=== PATIENT | male | born 1995 | race Caucasian/White ===

== ENCOUNTER 2017-12-30 21:30 | Emergency (ER) | payer OTHER ==
[~2017-12-30] VITALS: Ht 167.6 cm; Wt 63.5 kg
[~2017-12-30 21:30] MED LIST: CODACEE120 PO; CRUTCH4 USE; ERYT.5TO OS; Keflex500 MG PO; MUPI2TO TOP; PARO20; PARO20 PO; RXCODACESY PO
== END 2017-12-30 23:55 | disposition home or self-care (01) ==
LOC: ER 21:30
DX: S02.32XA Fracture of orbital floor, left side, initial encounter for closed fracture (principal); F17.210 Nicotine dependence, cigarettes, uncomplicated; Y04.2XXA Assault by strike against or bumped into by another person, initial encounter
CPT/HCPCS: 70486; 99284

== ENCOUNTER 2020-01-26 08:33 | Emergency (ER) | payer SELFPAY ==
[~2020-01-26] VITALS: Ht 170.2 cm; Wt 64.9 kg
[2020-01-26] MEDS ORDERED: Norco 5-325 Ta1 EACH PO (09:02)
[2020-01-26] MEDS ORDERED: CYCL10 PO (09:02)
[2020-01-26] MEDS ORDERED: IBUP600 PO (09:02)
== END 2020-01-26 09:19 | disposition home or self-care (01) ==
LOC: ER 08:33
DX: M54.5 Low back pain (principal); F17.210 Nicotine dependence, cigarettes, uncomplicated
CPT/HCPCS: 96372; 99283-25; J1885

== ENCOUNTER 2020-07-10 18:49 | Emergency (ER) | payer SELFPAY ==
[~2020-07-10] VITALS: Ht 162.6 cm; Wt 68.0 kg
[~2020-07-10 18:49] MED LIST changes: +CYCL10 PO; +IBUP600 PO; +Norco 5-325 Ta1 EACH PO
== END 2020-07-10 22:00 | disposition left against medical advice (07) ==
LOC: ER 18:49
DX: R09.81 Nasal congestion (principal); Z53.21 Procedure and treatment not carried out due to patient leaving prior to being seen by health care provider
CPT/HCPCS: 99282

== ENCOUNTER → 2020-08-23 | Outpatient (CLI) | payer SELFPAY ==
[2020-08-25 13:04] LABS: CORNONAVIRUS (COVID19) CSH-NRL Negative (Negative)
== END ==
LOC: LAB SHORT 12:22 → LAB EV 12:22
PROVIDERS: Physician Assistant
DX: J01.00 Acute maxillary sinusitis, unspecified (principal); Z20.828 Contact with and (suspected) exposure to other viral communicable diseases
CPT/HCPCS: U0003

== ENCOUNTER 2021-10-15 17:46 | Emergency (ER) | payer OTHER | END 2021-10-15 18:25 | disposition left against medical advice (07) | LOC: ER 17:46 | DX: Z53.21 Procedure and treatment not carried out due to patient leaving prior to being seen by health care provider (principal) ==

== ENCOUNTER 2022-03-13 09:58 | Emergency (ER) | payer OTHER ==
[~2022-03-13] VITALS: Ht 167.6 cm; Wt 45.4 kg
[2022-03-13] MEDS ORDERED: Cephalexin500 MG PO (11:16)
[2022-03-13] MEDS ORDERED: Vibramycin100 MG PO (11:16)
== END 2022-03-13 11:18 | disposition home or self-care (01) ==
LOC: ER 09:58
DX: L02.511 Cutaneous abscess of right hand (principal); F17.210 Nicotine dependence, cigarettes, uncomplicated
CPT/HCPCS: 99283

== ENCOUNTER 2023-02-04 10:57 | Emergency (ER) | payer OTHER ==
[~2023-02-04] VITALS: Ht 165.1 cm; Wt 59.0 kg
[~2023-02-04 10:57] MED LIST changes: +Cephalexin500 MG PO; +Vibramycin100 MG PO
== END 2023-02-04 13:36 | disposition home or self-care (01) ==
LOC: ER 10:57
DX: B34.9 Viral infection, unspecified (principal); F17.210 Nicotine dependence, cigarettes, uncomplicated
CPT/HCPCS: 71046